=== PATIENT | male | born 1955 | race Caucasian/White ===

== ENCOUNTER → 2018-10-09 11:52 | Outpatient (CLI) | payer OTHER, SELFPAY ==
[2018-10-09 12:52] LABS: Basophils % 0.6 % (0.1-2.0); Eosinophils % 0.5 % (0.1-12.0); Hematocrit 46.9 % (42.0-52.0); Hemoglobin 15.9 g/dL (14.1-18.0); Lymphocytes # 1.9 K/mm3 (0.7-4.5); Lymphocytes % 26.9 % (10-50); Mean Corpuscular Hemoglobin 34.1 pg (27.0-31.2); Mean Corpuscular Volume 100.3 fl (80-94); Mean Platelet Volume 9.4 fl (7.4-10.4); Monocytes # 0.6 K/mm3 (0.1-1.0); Monocytes % 8.7 % (1.7-9.3); Neutrophils # 4.4 K/mm3 (1.8-7.8); Neutrophils % 63.2 % (37.0-80.0); Platelet Count 109 K/mm3 (142-424); Red Blood Count 4.68 M/mm3 (4.60-6.20)
[2018-10-09 13:19] LABS: Alanine Aminotransferase 27 U/L (12-78); Albumin Level 4.2 gm/dL (3.4-5.0); Alkaline Phosphatase 76 U/L (46-116); Anion Gap 10.8 mEq/L (5-15); Aspartate Amino Transferase 18 U/L (15-37); Bilirubin,Direct 0.1 mg/dL (0.0-0.2); Bilirubin,Indirect 0.5 mg/dL (0.0-0.9); Bilirubin,Total 0.6 mg/dL (0.2-1.0); Blood Urea Nitrogen 24 mg/dL (7-18); Calcium 9.2 mg/dL (8.5-10.1); Carbon Dioxide 30 mmol/L (21.0-32.0); Chloride 104 mmol/L (98-107); Chol/HDL Ratio 3.7 (1-3.5); Cholesterol 144 mg/dL (140-200); Creatinine,Serum 1.06 mg/dL (0.70-1.30); Estimated Glomerular Filt Rate 71 ml/min (>60); GFR (African American) 86 ML/MIN (>60); Glucose 97 mg/dL (74-106); HDL Cholesterol 39 mg/dL (27-67); LDL Cholesterol 91 mg/dL (0-130); Potassium 4.8 mmoL/L (3.5-5.1); Sodium 140 mmol/L (136-145); Total Protein,Serum 7.2 gm/dL (6.4-8.2); Triglycerides 70 mg/dL (30-200); VLDL Cholesterol 14 mg/dL (0-40)
== END ==
PROVIDERS: Visit Provider Internal Medicine Cardiovascular Disease
DX: I25.10 Atherosclerotic heart disease of native coronary artery without angina pectoris (principal); E78.5 Hyperlipidemia, unspecified; Z79.899 Other long term (current) drug therapy; I10 Essential (primary) hypertension
CPT/HCPCS: 36415; 80048; 80061; 80076; 85025

== ENCOUNTER → 2019-03-01 08:49 | Outpatient (CLI) | payer OTHER, SELFPAY ==
[2019-03-01 15:21] LABS: Basophils % 0.4 % (0.1-2.0); Eosinophils % 0.5 % (0.1-12.0); Hematocrit 50.7 % (42.0-52.0); Lymphocytes # 1.4 K/mm3 (0.7-4.5); Lymphocytes % 23.4 % (10-50); Mean Corpuscular HGB Conc 31.5 g/dL (31.8-35.4); Mean Corpuscular Hemoglobin 32.3 pg (27.0-31.2); Mean Corpuscular Volume 102.3 fl (80-94); Mean Platelet Volume 9.5 fl (7.4-10.4); Monocytes # 0.5 K/mm3 (0.1-1.0); Monocytes % 8.1 % (1.7-9.3); Neutrophils # 4.1 K/mm3 (1.8-7.8); Neutrophils % 67.6 % (37.0-80.0); Platelet Count 150 K/mm3 (142-424); Red Blood Count 4.95 M/mm3 (4.60-6.20); Red Cell Distribution Width 12.7 % (11.5-17.5); White Blood Count 6.1 K/mm3 (4.8-10.8)
[2019-03-01 15:59] LABS: Alanine Aminotransferase 21 U/L (12-78); Albumin Level 4.1 gm/dL (3.4-5.0); Alkaline Phosphatase 76 U/L (46-116); Anion Gap 15.5 mEq/L (5-15); Aspartate Amino Transferase 23 U/L (15-37); Bilirubin,Direct 0.1 mg/dL (0.0-0.2); Bilirubin,Indirect 0.4 mg/dL (0.0-0.9); Bilirubin,Total 0.5 mg/dL (0.2-1.0); Blood Urea Nitrogen 24 mg/dL (7-18); Calcium 8.8 mg/dL (8.5-10.1); Carbon Dioxide 28 mmol/L (21.0-32.0); Chloride 104 mmol/L (98-107); Chol/HDL Ratio 3.6 (1-3.5); Cholesterol 145 mg/dL (140-200); Creatinine,Serum 1.12 mg/dL (0.70-1.30); Estimated Glomerular Filt Rate 66 ml/min (>60); GFR (African American) 80 ML/MIN (>60); Glucose 89 mg/dL (74-106); HDL Cholesterol 40 mg/dL (27-67); LDL Cholesterol 85 mg/dL (0-130); Potassium 4.5 mmoL/L (3.5-5.1); Sodium 143 mmol/L (136-145); Total Protein,Serum 6.9 gm/dL (6.4-8.2); Triglycerides 101 mg/dL (30-200); VLDL Cholesterol 20 mg/dL (0-40)
== END ==
PROVIDERS: Visit Provider Internal Medicine Cardiovascular Disease
DX: I25.10 Atherosclerotic heart disease of native coronary artery without angina pectoris (principal); E78.5 Hyperlipidemia, unspecified
CPT/HCPCS: 36415; 80048; 80061; 80076; 85025

== ENCOUNTER → 2019-10-22 07:08 | Outpatient (CLI) | payer OTHER, SELFPAY ==
--- NOTE | 2019-10-22 | CA_ITS ---
APPROVED REPORT Exam: Exercise Treadmill Technologist: Elenita Braun, Ht: 5 ft 7 in Wt: 190 lbs BSA: 1.98 m2 Indications: CAD/BRUITS Medical History Medications: Aspirin,,,,, Metoprolol,,,,, Losartan,,,,, Hydrochlorothiazide,,,,, Atorvastatin,,,,, SilDENAFIL,,,,, Stress Test Details Test: Anuel HR Resting HR: 51 bpm Max Heart Rate (APMHR): 157 bpm Max HR Achieved: 135 bpm Target HR (85% APMHR): 133 bpm % of APMHR: 85 BP Resting BP: 172/91 mmHg Max BP: 189/73 mmHg ECG Resting ECG: Sinus rhythm right bundle branch block nonspecific ST-T changes Clinical Exercise duration: 09:58 min Highest Stage Achieved: Exercise capacity: 12.8 METs Stress ECG Conclusion no CP, positive SOA at peak exercise resolving in recovery occ PAC, atrial valve? , occ PVC greater than 1.5mm ST depression The EKG portion of the exercise stress test is nondiagnostic due to baseline abnormal EKG. Patient has good exercise capacity. Test Summary RECOVERY 05:00 0.0 0.0 67 . 189/ 73 . . REST . . . . . . . Sitting REST 08:24 0.0 0.0 51 . 172/ 91 . . Stage 1 01:00 10.0 1.7 82 . . . . Stage 1 02:00 10.0 1.7 90 . . . . Stage 1 03:00 10.0 1.7 109 . . . . Stage 2 01:00 12.0 2.5 96 . 175/ 98 . . Stage 2 02:00 12.0 2.5 93 . 175/ 98 . . Stage 2 03:00 12.0 2.5 94 . 175/ 98 . . Stage 3 01:00 14.0 3.4 106 . 180/103 . . Stage 3 02:00 14.0 3.4 107 . 180/103 . . Stage 3 03:00 14.0 3.4 115 . 180/103 . . Stage 4 . . . . . . . Cardiolite injected Stage 4 00:58 16.0 4.2 124 . . . Stop exercise at 09:58 RECOVERY 01:00 0.0 0.0 111 . . . . RECOVERY 02:00 0.0 0.0 84 . . . . RECOVERY 03:00 0.0 0.0 74 . 189/ 73 . . RECOVERY 04:00 0.0 0.0 72 . 189/ 73 . . RECOVERY 05:00 0.0 0.0 67 . 189/ 73 . . RECOVERY 05:46 0.0 0.0 65 . 150/ 69 . . Electronically signed by : Tomy Trinidad, 10/22/2019 13:24:14
--- NOTE | 2019-10-22 07:10 | CA_ITS ---
APPROVED REPORT EXAM: Comprehensive 2D, Doppler, and color-flow Echocardiogram Pesticide Use Medical Coordinator: Pam Palm RVT Ht: 5 ft 7 in Wt: 194lbs BSA: 2.00 BP: 163/80 mmHg Indications: CAD,STENTS,HTN,HLD,RBBB,EX SMOKER 2D Dimensions LVOT 1.97 cm (M/F) 1.5-2.5 M-Mode Dimensions RVDd 3.37 cm (0.9-2.6) LVDd 5.24 cm (3.5-5.7) LVDs 2.94 cm (3.5-5.7) IVSd 0.80 cm (0.6-1.1) PWd 0.70 cm (0.6-1.1) EF (Teich) 74.70% FS 43.90% EDV (Teich) 131.80 mL ESV (Teich) 33.30 mL LV Diastology E/A Ratio 1.46 Mitral Valve MV A Velocity 48.00 (40-130 cm/s) Left Ventricle Left atrium is mildly enlarged, left ventricle is normal size, mild concentric left ventricular hypertrophy, visually estimated ejection fraction 55%, there is moderate hypokinesis involving the basal septum and inferior basal wall. Grade 1 diastolic dysfunction seen without tissue Doppler evidence of raise left atrial pressure. Right Ventricle Right atrium and right ventricle are mildly enlarged with normal contractility. Aortic Valve Aortic valve is minimally thickened and fibrosed, leaflet chordae display good mobility, there is no aortic stenosis or aortic insufficiency. Mitral Valve Mitral valve is grossly normal, there is mild mitral regurgitation. Tricuspid Valve Tricuspid valve is grossly normal, there is mild tricuspid regurgitation, tricuspid regurgitation jet velocity is inadequate for calculation of the right ventricular systolic pressure. Pulmonic Valve Pulmonic valve is poorly visualized. Great Vessels Aortic root is normal size. Pericardium No significant pericardial effusion noted. Conclusion 1. Biatrial enlargement, normal left ventricular size, mild concentric left ventricular hypertrophy, visually estimated ejection fraction 55% with segmental wall motion abnormality described above. Grade 1 diastolic dysfunction seen without tissue Doppler evidence of raise left atrial pressure. 2. Mildly enlarged right ventricle with normal contractility. 3. Mild mitral and tricuspid regurgitation. 4. No significant pericardial effusion noted. Electronically signed by : Tomy Trinidad, 10/22/2019 14:06:15
--- NOTE | 2019-10-22 07:14 | NM_ITS ---
APPROVED REPORT Exam: Nuclear Stress Test Indication: h/o mi, 2 stents, htn, hyperlipidemia Patient Location: Outpatient Stress Tech: Elenita Braun [place] Tech:Yani Harrell LEONARDO RT (R)(N)(M) Ht: 5 ft 7 in Wt: 190 lbs HR: 70 bpm BP: 152/91 mmHg BSA: 1.98 m2 BMI: 29.7 History: h/o mi, 2 stents, htn, hyperlipidemia Procedure: Patient exercised on Anuel protocol 9:58 minutes and sec, resting heart rate 70 bpm, resting blood pressure 152/91 mmHg, with exercise maximum heart rate achived was 135 bpm which is Greater than 85 % of the maximum predicted heart rate and blood pressure was 189/73 mmHg. Patient has Good exercise capacity, achieved 12.8 METs of workload on treadmill, the blood pressure response to exercise was Adequate. Electrocardiogram Resting electrocardiogram shows sinus rhythm right bundle branch block nonspecific ST-T changes, with exercise there is additional millimeter ST segment depression noted from the baseline EKG. The EKG portion of the exercise Myoview is nondiagnostic due to baseline abnormal EKG. Cardiac Stress and Resting SPECT Images: Cardiac Stress and Resting SPECT images were obtained using technetium 99m Myoview 30.9 mCi stress and 10.14 mCi at rest. Gated SPECT for analysis of segmental wall motion and calculation of the ejection fraction also done. Cardiac stress and resting SPECT images show a fixed defect involving the inferior inferior basal and inferior apical wall consistent with area of nontransmural myocardial scarring, without significant chana-infarct ischemia. Computer derived ejection fraction is 60% with moderate inferior wall hypokinesis, right ventricle is mildly enlarged with normal contractility. Conclusion: 1. The EKG portion of the exercise Myoview is nondiagnostic due to baseline abnormal EKG, patient has good exercise capacity achieved 12.8 mets of workload on treadmill, the blood pressure response to exercise was adequate, there was no exercise-induced chest discomfort, test was stopped due to shortness of breath. 2. Scintigraphic evidence of nontransmural myocardial scarring involving the inferior wall without significant chana-infarct ischemia. Computer derived ejection fraction is 60% with segmental wall motion abnormality described above, right ventricle is mildly enlarged with normal contractility. 3. Abnormal exercise Myoview study. Electronically signed by : Tomy Trinidad 10/22/2019 13:28:50
--- NOTE | 2019-10-22 07:36 | CA_ITS ---
APPROVED REPORT Mechanical Design Technician: MERRILL Laterality: Bilateral Study Quality: Good Indications: left carotid briut Risk Factors Hypertension: Hyperlipidemia ex smoker Doppler Spectral Velocity Analysis ECA (R) 92.50/16.10 cm/s ECA (L) 69.30/9.00 cm/s dICA (R) 101.50/40.50 cm/s dICA (L) 86.00/35.30 cm/s Oli (R) 68.70/27.60 cm/s Oli (L) 79.00/30.20 cm/s pICA (R) 68.10/21.20 cm/s pICA (L) 55.20/16.70 cm/s dCCA (R) 71.30/18.00 cm/s dCCA (L) 61.60/19.30 cm/s pCCA (R) 87.30/18.00 cm/s pCCA (L) 101.50/19.90 cm/s Vert (R) 52.00/17.30 cm/s Vert (L) 40.20/14.50 cm/s ICA/CCA 1.42 ICA/CCA 1.40 Findings Duplex evaluation demonstrates stenosis of the right proximal internal carotid artery <20% with PSV <140 cm/sec, EDV <100 cm/sec, and IC/CC Ratio <4.0.Duplex evaluation demonstrates stenosis of the left proximal internal carotid artery <20% with PSV <140 cm/sec, EDV <100 cm/sec, and IC/CC Ratio <4.0. Conclusion No increased velocities to suggest hemodynamically significant stenosis in either internal carotid artery. Electronically signed by : Pete Hickey MD 10/22/2019 14:40:12
== END ==
PROVIDERS: PCP Internal Medicine; Visit Provider Urology
DX: I11.9 Hypertensive heart disease without heart failure (principal); I25.10 Atherosclerotic heart disease of native coronary artery without angina pectoris; I45.10 Unspecified right bundle-branch block; R09.89 Other specified symptoms and signs involving the circulatory and respiratory systems; G47.33 Obstructive sleep apnea (adult) (pediatric)
CPT/HCPCS: 78452; 93017; 93306; 93880; A9502; G0399

== ENCOUNTER → 2019-11-25 12:29 | Outpatient (CLI) | payer OTHER, SELFPAY ==
[2019-11-25 15:06] LABS: Anion Gap 11.2 mEq/L (5-15); Blood Urea Nitrogen 18 mg/dl (9-20); Calcium 8.9 mg/dl (8.4-10.2); Carbon Dioxide 30 mmol/L (22.0-30.0); Chloride 100 mmol/L (98-107); Estimated Glomerular Filt Rate 68 ml/min (>60); GFR (African American) 82 ML/MIN (>60); Glucose 94 mg/dl (74-100); Potassium 4.2 mmoL/L (3.5-5.1); Sodium 137 mmol/L (136-145)
== END ==
PROVIDERS: Urology; Visit Provider Internal Medicine Cardiovascular Disease
DX: I11.9 Hypertensive heart disease without heart failure (principal); I25.10 Atherosclerotic heart disease of native coronary artery without angina pectoris
CPT/HCPCS: 36415; 80048